=== PATIENT | female | born 2000 | race Caucasian/White ===

== ENCOUNTER 2019-12-01 23:17 | Observation (INO) ==
[2019-12-01] MEDS ORDERED: SODIUM CHLORIDE 0.9% 1,000 ML IV STA (23:57)
[2019-12-01] MEDS ORDERED: ONDANSETRON 4 MG/2 ML VIAL IV STA (23:57)
[2019-12-02 00:15] LABS: Basophils % 0.3 % (0.0-0.8); Eosinophils % 0.4 % (0.00-10.9); Hematocrit 42.8 VOL% (35.7-47.0); Hemoglobin 15.4 GM/DL (12.0-16.0); Immature Granulocytes % 0.6 %; Lymphocytes % 24.8 % (21.3-54.2); Mean Corpuscular Volume 91.5 FL (87-102); Mean Platelet Volume 8.8 FL (9.6-12.0); Monocytes % 6.5 % (1.7-12.7); Neutrophils % 67.4 % (38.7-73.9); Platelet Count 297 T/CUMM (130-400); Red Blood Count 4.68 MC/CUMM (3.8-5.5); Red Cell Distribution Width 11.8 % (9.3-17.3)
[2019-12-02 00:16] LABS: Basophils # 0.1 10*3/uL (0.0-0.2); Eosinophils # 0.1 10*3/uL (0.0-0.87)
[2019-12-02] MEDS ORDERED: MEPERIDINE 25 MG/1 ML VIAL IV STA ×2 (01:15)
[2019-12-02] MEDS ORDERED: MEPERIDINE 25 MG/1 ML VIAL ONE (01:17)
[2019-12-02] MEDS ORDERED: MEPERIDINE 25 MG/1 ML VIAL IV PRN (01:18)
[2019-12-02] MEDS ORDERED: SODIUM CHLORIDE 0.9% 1,000 ML IV SCH (02:40)
[2019-12-02] MEDS: LACTATED RINGERS 1,000 ML IV SCH ×2 (03:10→10:41)
[2019-12-02] MEDS: FAMOTIDINE 20 MG/2 ML VIAL IV SCH ×2 (03:13→15:05)
[2019-12-02 03:25] LABS: Albumin 4.3 G/DL (3.4-5.0); Bilirubin,Total 1.2 MG/DL (0.2-1.0); Calcium 9.9 MG/DL (8.5-10.1); Total Protein 8.4 G/DL (6.4-8.3)
[2019-12-02] MEDS ORDERED: MEPERIDINE 50 MG/1 ML VIAL IV PRN (03:58)
[2019-12-02] MEDS ORDERED: PROMETHAZINE 25 MG/1 ML VIAL IM PRN (03:58)
[2019-12-02 04:23] LABS: Apearance,Urine CLEAR (Clear); Bacteria,Urine Occasional /HPF (Few); Bilirubin,Urine Negative (Negative); Blood, Urine Negative (Negative); Glucose,Urine (UA) Negative (Negative); Hyaline Casts,Urine 4 /LPF (0-3); Ketones,Urine 80 mg/dL (Negative); Mucus,Urine Many /LPF (Occasional); Nitrite,Urine Negative (Negative); Protein,Urine 30 MG/DL; RBC,Urine 1 /HPF (0-4); Squamous Epithelial Cell,Urine Occasional /HPF (0-10); Urine Color Yellow (Yellow); Urine Specific Gravity 1.025 (1.001-1.035); WBC,Urine 1 /HPF (0-6)
[2019-12-02] MEDS ORDERED: ACETAMINOPHEN 325 MG TABLET PO PRN (06:20)
[2019-12-02] MEDS ORDERED: ONDANSETRON 4 MG/2 ML VIAL IV PRN (06:21)
[2019-12-02 08:42] LABS: Albumin 3.2 G/DL (3.4-5.0); Bilirubin,Total 0.8 MG/DL (0.2-1.0); Calcium 8.7 MG/DL (8.5-10.1); Osmolality,Calculated 264.2 MOS/KG (273-304); Total Protein 6.3 G/DL (6.4-8.3)
[2019-12-03] MEDS: LACTATED RINGERS 1,000 ML IV SCH (01:37)
[2019-12-03] MEDS: FAMOTIDINE 20 MG/2 ML VIAL IV SCH (03:02)
[2019-12-03 05:30] LABS: Basophils % 0.4 % (0.0-0.8); Eosinophils # 0.1 10*3/uL (0.0-0.87); Eosinophils % 1.2 % (0.00-10.9); Hematocrit 31.9 VOL% (35.7-47.0); Immature Granulocytes % 0.8 %; Immature Granulocytes Absolute 0.08 #; Lymphocytes # 3.1 10*3/uL (1.4-4.0); Lymphocytes % 31.3 % (21.3-54.2); Mean Corpuscular HGB Conc 34.5 GM/DL (32-36); Mean Corpuscular Volume 93.5 FL (87-102); Monocytes % 6.9 % (1.7-12.7); Neutrophils % 59.4 % (38.7-73.9); Red Cell Distribution Width 11.9 % (9.3-17.3)
[2019-12-03 05:31] LABS: Platelet Count 198 T/CUMM (130-400); Red Blood Count 3.41 MC/CUMM (3.8-5.5); White Blood Count 9.9 T/CUMM (4-12)
[2019-12-03 05:46] LABS: Albumin 2.6 G/DL (3.4-5.0); Bilirubin,Total 0.8 MG/DL (0.2-1.0); Calcium 8.2 MG/DL (8.5-10.1); Osmolality,Calculated 265.1 MOS/KG (273-304); Total Protein 5.2 G/DL (6.4-8.3)
[2019-12-03 07:21] VITALS: BP 85/54
== END 2019-12-03 11:00 | disposition home or self-care (01) ==
LOC: N.EDINP 23:17 → N.ED 23:17 → N.OB 12-02 02:10 → N.ED 12-02 02:10 → N.OB 12-02 05:13
PROVIDERS: ADMIT Specialist; ATTEND Specialist